=== PATIENT | female | born 1940 | race Caucasian/White ===

== ENCOUNTER 2023-10-10 18:51 | Emergency (ER) | payer BC, OTHER ==
[~2023-10-10] VITALS: Ht 160 cm; Wt 81.6 kg
[2023-10-10 19:49] VITALS: TEMP 97.8
[2023-10-11 01:35] VITALS: BP 141/74; O2SAT 99
== END 2023-10-11 01:44 ==
LOC: ER 18:51
DX: M25.561 Pain in right knee (principal); M79.671 Pain in right foot
CPT/HCPCS: 73564-TC; 73590-TC; 73610-TC; 73630-TC; 93926-TC

== ENCOUNTER 2023-12-13 19:53 | Inpatient (IN) | payer BC, OTHER ==
[~2023-12-13] VITALS: Ht 160 cm; Wt 70.3 kg
[2023-12-13 20:32] LABS: BASOPHILS % (AUTO) 0.5 % (0.0-2.0); EOSINOPHILS # (AUTO) 0.1 K/uL (0.0-0.7); EOSINOPHILS % (AUTO) 2.3 % (0.0-6.0); HEMATOCRIT 36 % (33-45); HEMOGLOBIN 11.9 g/dL (11.5-14.8); LYMPHOCYTES # (AUTO) 1.2 K/uL (0.8-4.8); LYMPHOCYTES % (AUTO) 27.4 % (20.0-44.0); MEAN CORPUSCULAR HEMOGLOBIN 30 PG (26.0-33.0); MEAN CORPUSCULAR HGB CONC 33 g/dl (31.0-36.0); MEAN CORPUSCULAR VOLUME 91 fL (82-100); MONOCYTES # (AUTO) 0.4 K/uL (0.1-1.30); MONOCYTES % (AUTO) 8.4 % (2.0-12.0); NEUTROPHILS # (AUTO) 2.7 K/uL (1.8-8.9); NEUTROPHILS % (AUTO) 61.4 % (43.0-81.0); PLATELET COUNT (AUTO) 187 K/uL (150-450); RED BLOOD CELL COUNT(AUTO) 3.95 MIL/uL (4.0-5.2); RED CELL DISTRIBUTION WIDTH 13.4 % (11.5-15.0); WHITE BLOOD COUNT (AUTO) 4.4 K/uL (4.3-11.0)
[2023-12-13 20:41] LABS: CALCIUM, SERUM 8.8 mg/dL (8.5-10.1); CARBON DIOXIDE 26 mmol/L (21-32); CHLORIDE 104 mmol/L (98-107); CREATININE 0.8 mg/dL (0.6-1.3); GLUCOSE 125 mg/dL (74-106); POTASSIUM 4.3 mmol/L (3.5-5.1); SODIUM SERUM 137 mmol/L (136-145); UREA NITROGEN, BLOOD 23 mg/dL (7-18)
[2023-12-13 20:53] LABS: ALANINE AMINOTRANSFERASE 27 U/L (12-78); ALBUMIN 3.5 g/dL (3.4-5.0); ALKALINE PHOSPHATASE 67 U/L (46-116); ASPARTATE AMINOTRANSFERASE 16 U/L (15-37); BILIRUBIN,DIRECT 0.1 mg/dL (0.0-0.2); BILIRUBIN,TOTAL 0.4 mg/dL (0.2-1.0); NT-PRO BNP 109 pg/mL (0-125); TOTAL PROTEIN, SERUM 6.6 g/dL (6.4-8.2)
[2023-12-13] MEDS ORDERED: MAG HYDROX/AL HYDROX/SIMETH 30 ML UDC PO PRN (22:00)
[2023-12-13] MEDS ORDERED: ACETAMINOPHEN 325 MG TABLET PO PRN (22:00)
[2023-12-13] MEDS ORDERED: TEMAZEPAM 15 MG CAPSULE PO PRN (22:00)
[2023-12-13] MEDS ORDERED: MAGNESIUM HYDROXIDE 30 ML UDC PO PRN (22:00)
[2023-12-13] MEDS ORDERED: ONDANSETRON HCL/PF 4 MG/2 ML VIAL IVP PRN (22:00)
[2023-12-13] MEDS ORDERED: Z GUARD REMEDY 4 OZ OINT TP PRN (22:00)
[2023-12-13] MEDS ORDERED: HYDROCODONE/APAP 5/325MG TABLET PO PRN (22:00)
[2023-12-13] MEDS ORDERED: MORPHINE SULFATE INJ 2 MG/ML DISP.SYRIN IV PRN (22:00)
[2023-12-14] MEDS: NITROGLYCERIN 0.4 MG/TAB BOTTLE SL ONE ×3 (00:30→12:25)
[2023-12-14 07:45] LABS: BASOPHILS % (AUTO) 0.6 % (0.0-2.0); EOSINOPHILS # (AUTO) 0.2 K/uL (0.0-0.7); EOSINOPHILS % (AUTO) 4.7 % (0.0-6.0); HEMATOCRIT 35 % (33-45); LYMPHOCYTES # (AUTO) 1.2 K/uL (0.8-4.8); LYMPHOCYTES % (AUTO) 30.9 % (20.0-44.0); MEAN CORPUSCULAR HEMOGLOBIN 32 PG (26.0-33.0); MEAN CORPUSCULAR HGB CONC 34 g/dl (31.0-36.0); MEAN CORPUSCULAR VOLUME 93 fL (82-100); MONOCYTES # (AUTO) 0.3 K/uL (0.1-1.30); NEUTROPHILS # (AUTO) 2.1 K/uL (1.8-8.9); NEUTROPHILS % (AUTO) 54.8 % (43.0-81.0); PLATELET COUNT (AUTO) 172 K/uL (150-450); RED BLOOD CELL COUNT(AUTO) 3.77 MIL/uL (4.0-5.2); RED CELL DISTRIBUTION WIDTH 13.2 % (11.5-15.0); WHITE BLOOD COUNT (AUTO) 3.8 K/uL (4.3-11.0)
[2023-12-14 08:00] VITALS: BP 101/63; TEMP 97.9; O2SAT 97
[2023-12-14] MEDS: PANTOPRAZOLE 40 MG TABLET.DR PO SCH (08:17)
[2023-12-14] MEDS ORDERED: LISI20TA30 PO (08:23)
[2023-12-14] MEDS ORDERED: CHOL200059 PO (08:23)
[2023-12-14] MEDS ORDERED: LEVO50TA PO (08:23)
[2023-12-14] MEDS ORDERED: ROSU10TA2 PO (08:23)
[2023-12-14] MEDS ORDERED: PANT20TA2 PO (08:23)
[2023-12-14] MEDS ORDERED: LEVE100023 PO (08:23)
[2023-12-14] MEDS ORDERED: CHLO473M2 MM (08:23)
[2023-12-14 08:49] LABS: CALCIUM, SERUM 9.3 mg/dL (8.5-10.1); CARBON DIOXIDE 24 mmol/L (21-32); CHLORIDE 106 mmol/L (98-107); CREATININE 0.7 mg/dL (0.6-1.3); GLUCOSE 91 mg/dL (74-106); MAGNESIUM 2.3 mg/dL (1.8-2.4); PHOSPHORUS 4.2 mg/dL (2.5-4.9); SODIUM SERUM 139 mmol/L (136-145); UREA NITROGEN, BLOOD 21 mg/dL (7-18)
[2023-12-14] MEDS: ASPIRIN 81 MG TAB.CHEW PO SCH (08:54)
[2023-12-14 09:06] LABS: CHOLESTEROL 157 mg/dL (<200); HDL CHOLESTEROL 67 mg/dL (40-60); LDL 71 mg/dL (0-99); THYROID STIMULATING HORMONE 5.553 uIU/mL (0.358-3.74); TRIGLYCERIDES 92 mg/dL (30-150)
[2023-12-14] MEDS: LEVOTHYROXINE SODIUM 50 MCG TABLET PO SCH (11:36)
[2023-12-14] MEDS ORDERED: IOHEXOL-350 100 ML VIAL IV ONE (11:43)
[2023-12-14] MEDS ORDERED: NITROGLYCERIN 0.4 MG/TAB BOTTLE ONE (11:43)
[2023-12-14] MEDS ORDERED: CT SWABBABLE VALVE TRANS SET 1 EA INFUS.SET MC ONE (11:43)
[2023-12-14] MEDS ORDERED: METOPROLOL TARTRATE INJ 5 MG/5 ML AMPUL ONE (11:43)
[2023-12-14] MEDS ORDERED: IV NS 0.9% 250 ML IV ONE (11:43)
[2023-12-14 12:00] VITALS: BP 107/67; TEMP 97.3; O2SAT 98
[2023-12-14] MEDS: METOPROLOL TARTRATE INJ 5 MG/5 ML AMPUL IVP PRN (12:22)
[2023-12-14 16:00] VITALS: BP 109/57; TEMP 97.9; O2SAT 99
[2023-12-14] MEDS: LEVETIRACETAM SOL (5 ML) 100 MG/ML UDC PO SCH (16:19)
[2023-12-14] MEDS: LEVETIRACETAM (250 MG) 250 MG TABLET PO SCH (16:28)
[2023-12-14] MEDS: CHOLECALCIFEROL 1,000 UNIT TABLET (VIT D3) PO SCH (16:45)
[2023-12-14 20:00] VITALS: BP 100/61; TEMP 97.3; O2SAT 98
[2023-12-15] VITALS: BP 96/61; TEMP 97.5; O2SAT 96
[2023-12-15 00:10] VITALS: BP 96/61; TEMP 97.5; O2SAT 96
[2023-12-15 04:00] VITALS: BP 125/88; TEMP 97.5; O2SAT 100
[2023-12-15 07:30] VITALS: BP_SYST 115; BP_SYST 154; BP_DIAS 72; BP_DIAS 88; TEMP 98.1; TEMP 98.2; O2SAT 98; O2SAT 99
[2023-12-15] MEDS: ATORVASTATIN 10 MG TABLET PO SCH (08:12)
== END 2023-12-15 17:33 | DRG 303 ==
LOC: ER 20:04 → TELE 23:16 → MED 12-15 09:02
PROVIDERS: ADMIT Nurse Practitioner Acute Care; ATTEND Nurse Practitioner Acute Care
DX: I25.10 Atherosclerotic heart disease of native coronary artery without angina pectoris (principal); I50.32 Chronic diastolic (congestive) heart failure; E66.9 Obesity, unspecified; I11.0 Hypertensive heart disease with heart failure; E78.5 Hyperlipidemia, unspecified; Z87.891 Personal history of nicotine dependence; Z95.0 Presence of cardiac pacemaker; E03.9 Hypothyroidism, unspecified; Z68.27 Body mass index [BMI] 27.0-27.9, adult
CPT/HCPCS: 36415; 71045-TC; 73030-TC; 73090-TC; 73120-TC; 75574; 80048-TC; 80061-TC; 80076-TC; 83735-TC; 83880; 84100-TC; 84439-TC; 84443-TC; 84484-TC; 85025-TC; 87081-TC; 93307-TC; 97110-TC; 97112-TC; 97530-TC; G0378; J1953; J3490; J7050; Q9967